=== PATIENT | male | born 1985 | race Caucasian/White ===

== ENCOUNTER → 2021-06-28 13:04 | Outpatient (CLI) | payer OTHER, SELFPAY ==
--- NOTE | 2021-06-28 13:13 | DI.RAD.S_ITS ---
PROCEDURE: XR SHOULDER RT MIN 2V INDICATIONS: SHOULDER PAIN/AC JOINT SWELLING TECHNIQUE: 3 views of the shoulder were acquired. COMPARISON: None. FINDINGS: Bones: No fractures or dislocations. No suspicious bony lesions. Visualized ribs appear intact. There is mild hypertrophic osteoarthritic changes of the right acromioclavicular joint with overlying soft tissue prominence. Coracoclavicular and acromioclavicular intervals are maintained. Soft tissues: No suspicious soft tissue calcifications. Visualized portions of the lungs are clear. IMPRESSION: Right shoulder without acute radiographic abnormalities. 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 Underlying acromioclavicular bursitis not excluded. Dictated by: Babatunde Adorno M.D. on 06/28/2021 at 17:23 Approved by: Babatunde Adorno M.D. on 06/28/2021 at 17:24
== END ==
PROVIDERS: Family Provider Family Medicine; PCP Family Medicine; Referring Provider Family Medicine; Visit Provider Family Medicine
DX: M25.511 Pain in right shoulder (principal)
CPT/HCPCS: 73030